=== PATIENT | female | born 1945 | race African-American/Black ===

== ENCOUNTER 2016-09-20 15:24 | Day surgery (SDC) | payer MEDICARE, MEDICAID ==
[2016-09-20] MEDS ORDERED: NALOXONE HCL INJ/PF 0.4 MG/1 ML SDV ONE (15:45)
[2016-09-20] MEDS ORDERED: MIDAZOLAM 2 MG/2 ML INJ ONE (15:46)
[2016-09-20] MEDS ORDERED: GLUCAGON,HUMAN RECOMB 1 MG INJ ONE (15:46)
[2016-09-20] MEDS ORDERED: FLUMAZENIL INJ 0.5 MG/5 ML VIAL IV ONE (15:46)
[2016-09-20] MEDS ORDERED: EPINEPHRINE INJ 1 MG/10 ML DISP.SYRIN ONE (15:46)
[2016-09-20] MEDS ORDERED: FENTANYL CITRATE INJ/PF 100 MCG/2 ML AMPUL ONE (15:46)
--- NOTE | 2016-09-20 18:26 | PDOC DISCHARGE SUMMARY ---
Discharge Summary (SDC) - Discharge Final Diagnosis: Pyloric stenosis Date of Surgery: 09/20/16 Condition: Stable Treatment or Instructions: None Discharge Diet: As Tolerated Discharge Activity: Activity As Tolerated Report the Following to Your Physician Immediately: Nausea, Vomiting, Swelling, Warmth
--- NOTE | 2016-09-20 18:26 | Operative Report ---
Operative Report DATE OF SURGERY: 09/20/16 Operative Report: Pre-op diagnosis: History of gastroparesis with possible pyloric stenosis Post-op diagnosis: Pyloric stenosis Surgery: Esophagogastroduodenoscopy with Botox injection Medications: Versed 2mg Fentanyl 100mcg IV push Tissue removed: None Procedure: After informed consent obtained from patient, the throat was sprayed with Hurricane and conscious sedation was achieved. The upper endoscope was inserted into the esophagus under direct vision and advanced into the stomach. The duodenum was entered and examined to the second part. Endoscope was then slowly pulled out of the patient as the mucosa was examined into details. Patient tolerated procedure well. Findings Esophagus: Normal Z-line at: 40 cm Antrum: Normal. The pyloric channel was injected in 4 quadrants with Botox Body: Normal Fundus: Normal Duodenum first part: Normal Duodenum second part: Normal Plan: Continue omeprazole and gastroparesis diet OPERATION: .
[2016-09-20] MEDS ORDERED: ONABOTULINUMTOXINA INJ/PF 100 UNIT SDV IJ ONE (18:30)
[2016-09-20 19:21] VITALS: BP 133/83
== END 2016-09-20 19:17 | disposition home or self-care (01) ==
LOC: END 15:24
PROVIDERS: ATTEND Internal Medicine Gastroenterology
PROC: 3E0G8GC Introduction of Other Therapeutic Substance into Upper GI, Via Natural or Artificial Opening Endoscopic (ICD-10-PCS; principal; 2016-09-20 15:45)
DX: K31.1 Adult hypertrophic pyloric stenosis (principal); K21.9 Gastro-esophageal reflux disease without esophagitis; F95.9 Tic disorder, unspecified; Z79.899 Other long term (current) drug therapy
CPT/HCPCS: 43236; J2250; J3010; J0585; J0171; J1610; J2310; J3490